=== PATIENT | female | born 1975 | race Two or more races ===

== ENCOUNTER 2018-12-27 05:16 | Emergency (ER) | payer SELFPAY ==
--- NOTE | 2018-12-27 05:24 | ED PDOC ---
Arrival/HPI - General Historian: EMS EM Caveat: Intoxicated, Uncooperative - History of Present Illness Narrative History of Present Illness (Text): 12/27/18 05:10 37 year old female, with unobtainable past medical history, presents to the emergency department via EMS and [facility] for public intoxication. Patient is uncooperative and combative in the Emergency room. Patient is not responding to questions appropriately. HPI and ROS limited due to patient's state of intoxication. Past Medical History - Provider Review Nursing Documentation Reviewed: Yes Family/Social History - Physician Review Nursing Documentation Reviewed: Yes Family/Social History: No Known Family HX Allergies/Home Meds Allergies/Adverse Reactions: Allergies Unobtainable Allergy (Verified 12/27/18 05:27) Home Medications: Home Meds Medication Instructions Recorded Confirmed Unobtainable 12/27/18 12/27/18 Review of Systems - Physician Review All systems were reviewed & negative as marked: Yes - Review of Systems Systems not reviewed;Unavailable: Intoxicated Physical Exam Vital Signs Reviewed: Yes Appearance: Positive for: Well-Appearing, Non-Toxic, Comfortable Pain Distress: None Mental Status: Positive for: Agitated - Systems Exam Head: Present: Atraumatic, Normocephalic Pupils: Present: PERRL Extroacular Muscles: Present: EOMI Conjunctiva: Present: Normal Mouth: Present: Moist Mucous Membranes Neck: Present: Normal Range of Motion Respiratory/Chest: Present: Clear to Auscultation, Good Air Exchange. No: Respiratory Distress, Accessory Muscle Use Cardiovascular: Present: Regular Rate and Rhythm, Normal S1, S2. No: Murmurs Abdomen: No: Tenderness, Distention, Peritoneal Signs Back: Present: Normal Inspection Upper Extremity: Present: Normal Inspection. No: Cyanosis, Edema Lower Extremity: Present: Normal Inspection. No: Edema Neurological: Present: GCS=15, Speech Normal Skin: Present: Warm, Dry, Normal Color. No: Rashes Psychiatric: Present: Alert, Agitated, Intoxicated Medical Decision Making ED Course and Treatment: 12/27/18 05:10 Impression: 37 year old female presents via EMS and [facility] for public intoxication. Plan: -- Haldol, Ativan -- Labs -- Restraints -- Sobriety -- Reassess and disposition Progress Notes: 12/27/18 05:14 Code Ellis called. Patient is combative and uncooperative in the Emergency room Patient restraint and sedated for the safety of staff and patient. 12/27/18 07:01 Case signed out to Dr. Long Pending labs, sobriety, revaluation/disposition. - Lab Interpretations I have reviewed the lab results: Yes - Scribe Statement The provider has reviewed the documentation as recorded by the Scribe Dewayne Busch Provider Scribe Attestation: All medical record entries made by the Scribe were at my direction and personally dictated by me. I have reviewed the chart and agree that the record accurately reflects my personal performance of the history, physical exam, medical decision making, and the department course for this patient. I have also personally directed, reviewed, and agree with the discharge instructions and disposition. Disposition/Present on Arrival - Present on Arrival Any Indicators Present on Arrival: No - Disposition Have Diagnosis and Disposition been Completed?: No Diagnosis: Alcohol intoxication Disposition Time: 07:00 Condition: STABLE
[2018-12-27 05:28] VITALS: BMI 24.7
[2018-12-27 06:10] LABS: HEMOGLOBIN 11.4 g/dL (12.0-16.0); MEAN CELL VOLUME 82.8 fl (80.0-105.0); MEAN CORPUSCULAR HEMOGLOBIN 25.9 pg (25.0-35.0); MEAN CORPUSCULAR HGB CONC 31.2 g/dl (31.0-37.0); MEAN PLATELET VOLUME 9.1 fl (7.0-11.0); RBC 4.41 10^6/uL (3.5-6.1); RED CELL DISTRIBUTION WIDTH 14.7 % (11.5-14.5); WHITE BLOOD COUNT 5.2 10^3/uL (4.5-11.0)
[2018-12-27 06:13] LABS: ALB/GLOB RATIO 1.2 (1.1-1.8); ALBUMIN 4.3 g/dL (3.0-4.8); ALT/SGPT 14 U/L (7-56); AST/SGOT 27 U/L (14-36); BLOOD UREA NITROGEN 7 mg/dL (7-21); CALCIUM 8.7 mg/dL (8.4-10.5); GFR NON-AFRICAN AMERICAN > 60
[2018-12-27 06:23] LABS: BARBITURATES, UR NEGATIVE (NEGATIVE); BENZODIAZEPINES, UR NEGATIVE (NEGATIVE); OPIATES, UR NEGATIVE (NEGATIVE); PHENCYCLIDINE, UR NEGATIVE (NEGATIVE)
--- NOTE | 2018-12-27 07:10 | ED PDOC ---
Physical Exam Vital Signs Reviewed: Yes Vital Signs Temp Pulse Resp BP Pulse Ox 12/27/18 05:36 98.7 F 105 H 17 105/71 100 12/27/18 05:30 113 H 18 130/79 95 Blood Pressure: Normal Pulse: Tachycardic Respiratory Rate: Normal Appearance: Positive for: Well-Appearing, Non-Toxic, Comfortable Pain Distress: None Mental Status: Positive for: Alert and Oriented X 3 Medical Decision Making ED Course and Treatment: 12/27/18 07:08 Patient signed out to me by Dr. Martinez. Patient brought in for alcohol intoxication last night. Pending labs, sobriety, revaluation/disposition. 12/27/18 14:00 Patient awake, alert, gait unsteady. 12/27/18 15:05 Gait steady. - Lab Interpretations Lab Results: Total Bilirubin 0.1 mg/dL (0.2-1.3) L 12/27/18 05:50 AST 27 U/L (14-36) 12/27/18 05:50 ALT 14 U/L (7-56) 12/27/18 05:50 Alkaline Phosphatase 55 U/L (38-126) 12/27/18 05:50 Total Protein 7.8 g/dL (5.8-8.3) 12/27/18 05:50 Albumin 4.3 g/dL (3.0-4.8) 12/27/18 05:50 Globulin 3.5 gm/dL 12/27/18 05:50 Albumin/Globulin Ratio 1.2 (1.1-1.8) 12/27/18 05:50 - Medication Orders Current Medication Orders: Discontinued Medications Haloperidol Lactate (Haldol) 5 mg IM STAT STA; Protocol Stop: 12/27/18 05:23 Last Admin: 12/27/18 05:22 Dose: 5 mg IM Administration Charges Document 12/27/18 05:22 AD (Rec: 12/27/18 05:36 AD [id number]) Injection Site MAR Injection Site Left Deltoid Charges for Administration # of IM Administrations 1 Lorazepam (Ativan) 2 mg IM ONCE ONE; Protocol Stop: 12/27/18 05:24 Last Admin: 12/27/18 05:23 Dose: 2 mg IM Administration Charges Document 12/27/18 05:23 AD (Rec: 12/27/18 05:36 AD [id number]) Injection Site MAR Injection Site Right Deltoid Charges for Administration # of IM Administrations 1 - Scribe Statement The provider has reviewed the documentation as recorded by the Scribe Jose Elias Ricketts All medical record entries made by the Scribe were at my direction and personally dictated by me. I have reviewed the chart and agree that the record accurately reflects my personal performance of the history, physical exam, medical decision making, and the department course for this patient. I have also personally directed, reviewed, and agree with the discharge instructions and disposition. Disposition/Present on Arrival - Present on Arrival Any Indicators Present on Arrival: No History of DVT/PE: No History of Uncontrolled Diabetes: No Urinary Catheter: No History of Decub. Ulcer: No History Surgical Site Infection Following: None - Disposition Have Diagnosis and Disposition been Completed?: Yes Diagnosis: Alcohol intoxication Disposition Time: 07:00 Patient Plan: Discharge Patient Problems: Current Active Problems Problem Status Onset Alcohol intoxication Acute Condition: GOOD Discharge Instructions (ExitCare): Alcohol Poisoning (DC) Forms: [facility] (Indonesian)
[2018-12-27 10:35] VITALS: O2SAT 97
[2018-12-27 13:44] VITALS: BP 124/79; PULSE 82; RESP 18; TEMP 97.9
== END 2018-12-27 15:14 | disposition home or self-care (01) ==
LOC: ED 05:16
DX: F10.129 Alcohol abuse with intoxication, unspecified (principal)
CPT/HCPCS: 80053; 81025; 85027; 96372; 99284; G0480; J1630; J2060